=== PATIENT | female | born 1970 | race Two or more races ===

== ENCOUNTER → 2018-02-22 | Day surgery (SDC) | payer OTHER | END | disposition home or self-care (01) | LOC: ADM 02-20 13:45 → CIR.AMB 06:10 | DX: Q62.31 Congenital ureterocele, orthotopic (principal) ==

== ENCOUNTER 2024-08-20 08:36 | Inpatient (IN) | payer OTHER ==
[~2024-08-20] VITALS: Ht 160 cm; Wt 72.6 kg
[2024-08-20] MEDS ORDERED: AVAPRO300 MG PO (08:52)
[2024-08-20] MEDS ORDERED: RINGERS SOLUTION,LACTATED 1,000 ML IV STA (09:14)
[2024-08-20] MEDS ORDERED: KETOROLAC TROMETHAMINE 60 MG VIAL IM STA (09:15)
[2024-08-20 09:28] LABS: HEMATOCRIT 38.5 % (36.0-45.00); MEAN CELL VOLUME 84.6 fL (80.00-100.00); MEAN CORPUSCULAR HEMOGLOBIN 28.7 pg (27.00-32.0); MEAN CORPUSCULAR HGB CONC 33.9 g/dl (32.0-36.0); PLATELET COUNT 325 K/uL (150-450); RED BLOOD COUNT 4.55 M/uL (4.00-6.00); RED CELL DISTRIBUTION WIDTH 14.4 % (11.5-14.5)
[2024-08-20 10:05] LABS: INR 0.97; PARTIAL THROMBOPLASTIN TIME 25.9 SECONDS (22.0-34.0); PROTHROMBIN TIME 10.6 SECONDS (9.0-11.5)
[2024-08-20 10:09] LABS: CALCIUM 8.6 mg/dL (8.5-10.1); CREATININE SERUM 0.61 mg/dL (0.55-1.02); GFR 102.6; POTASSIUM 3.55 mEq/L (3.5-5.1)
[2024-08-20 11:50] LABS: PH,URINE 7.5 (5.0-8.0); URINE APPEARANCE Clear; URINE BILIRRUBIN Negative (NEGATIVE); URINE BLOOD Large; URINE COLOR Yellow; URINE GLUCOSE Negative (NEGATIVE); URINE KETONE Negative (NEGATIVE); URINE LEUKOCYTE Moderate; URINE NITRATE Negative; URINE PROTEIN Negative (NEGATIVE)
[2024-08-20 11:54] LABS: URINE BACTERIA 267.1 uL (0.0-1933); URINE EPITHELIAL CELLS 15.1 uL (0.0-38.8); URINE RBC 418.5 uL (0.0-20.8); URINE WBC 444.5 uL (0.0-23.2)
[2024-08-20 11:57] LABS: URINE CAST 0.45 uL (0.0-1.40)
[2024-08-20] MEDS ORDERED: MEPERIDINE HCL/PF 50 MG/ML VIAL IM STA (15:04)
[2024-08-20] MEDS ORDERED: PROMETHAZINE HCL 50 MG/ML AMPUL IM ONE (15:15)
[2024-08-20] MEDS ORDERED: 0.9 % SODIUM CHLORIDE 1,000 ML IV SCH (22:45)
[2024-08-20] MEDS ORDERED: MORPHINE SULFATE 4 MG/ML CARTRIDGE IV PRN (22:45)
[2024-08-20] MEDS ORDERED: ACETAMINOPHEN 500 MG GEL..CAP PO PRN (22:45)
[2024-08-20] MEDS ORDERED: MORPHINE SULFATE 4 MG/ML CARTRIDGE IV ONE (22:45)
[2024-08-20] MEDS ORDERED: ONDANSETRON HCL 4 MG in 0.9 % SODIUM CHLORIDE 50 ML IV PRN (22:45)
[2024-08-21 02:16] VITALS: BP 130/78
[2024-08-21 03:31] VITALS: BP 120/68; O2SAT 97
[2024-08-21 04:28] LABS: INR 1.15; PARTIAL THROMBOPLASTIN TIME 30.2 SECONDS (22.0-34.0); PROTHROMBIN TIME 12.4 SECONDS (9.0-11.5)
[2024-08-21 04:30] VITALS: BP 122/64; O2SAT 99
[2024-08-21] MEDS ORDERED: MORPHINE SULFATE 4 MG/ML CARTRIDGE IV PRN (07:52)
[2024-08-21 08:35] VITALS: BP 94/63; O2SAT 93
[2024-08-21] MEDS ORDERED: CEFTRIAXONE SODIUM 2,000 MG in 0.9 % SODIUM CHLORIDE 100 ML IV SCH (09:00)
[2024-08-21] MEDS ORDERED: FAMOTIDINE/PF 20 MG in 0.9 % SODIUM CHLORIDE 8 ML IV PUSH SCH (09:00)
[2024-08-21] MEDS ORDERED: IRBESARTAN 300 MG TABLET PO SCH (09:00)
[2024-08-21 09:46] VITALS: BP 130/62
[2024-08-21 10:51] LABS: HEMATOCRIT 33.2 % (36.0-45.00); HEMOGLOBIN 11.1 g/dL (12.0-15.00); MEAN CELL VOLUME 84.4 fL (80.00-100.00); MEAN CORPUSCULAR HEMOGLOBIN 28.3 pg (27.00-32.0); MEAN CORPUSCULAR HGB CONC 33.6 g/dl (32.0-36.0); PLATELET COUNT 282 K/uL (150-450); RED BLOOD COUNT 3.93 M/uL (4.00-6.00); RED CELL DISTRIBUTION WIDTH 14.6 % (11.5-14.5)
[2024-08-21 11:32] LABS: CREATININE SERUM 0.81 mg/dL (0.55-1.02); GFR 73.96; POTASSIUM 3.81 mEq/L (3.5-5.1)
[2024-08-21 15:59] VITALS: BP 136/68; O2SAT 96
[2024-08-22] VITALS: BP 115/62; O2SAT 98
[2024-08-22 08:30] VITALS: BP 138/71; O2SAT 99
[2024-08-22 12:29] LABS: HEMATOCRIT 33.2 % (36.0-45.00); MEAN CELL VOLUME 86.2 fL (80.00-100.00); MEAN CORPUSCULAR HEMOGLOBIN 28.5 pg (27.00-32.0); PLATELET COUNT 283 K/uL (150-450); RED BLOOD COUNT 3.85 M/uL (4.00-6.00); RED CELL DISTRIBUTION WIDTH 14.6 % (11.5-14.5)
[2024-08-22 13:50] LABS: ALBUMIN 2.5 gm/dL (3.4-5.0); BILIRUBIN TOTAL 0.23 mg/dL (0.3-1.2); CALCIUM 8.4 mg/dL (8.5-10.1); CREATININE SERUM 0.6 mg/dL (0.55-1.02); GFR 104.57; GLOBULINA 3.9 G/DL (2.4-3.5); POTASSIUM 3.74 mEq/L (3.5-5.1); TOTAL PROTEIN 6.4 gm/dL (6.4-8.2)
[2024-08-22 17:32] VITALS: BP 124/80; O2SAT 100
[2024-08-23] VITALS: BP 153/79; O2SAT 98
[2024-08-23 08:25] VITALS: BP 134/78; O2SAT 100
[2024-08-23] MEDS ORDERED: ACETAMINOPHEN WITH CODEINE 1 UDTAB TABLET PO PRN (09:45)
[2024-08-23 16:00] VITALS: BP 148/80; O2SAT 98
[2024-08-24 00:43] VITALS: BP 126/66; O2SAT 100
[2024-08-24 08:09] LABS: HEMOGLOBIN 9.8 g/dL (12.0-15.00); MEAN CELL VOLUME 84.5 fL (80.00-100.00); MEAN CORPUSCULAR HEMOGLOBIN 28.6 pg (27.00-32.0); MEAN CORPUSCULAR HGB CONC 33.9 g/dl (32.0-36.0); PLATELET COUNT 274 K/uL (150-450); RED BLOOD COUNT 3.43 M/uL (4.00-6.00); RED CELL DISTRIBUTION WIDTH 14.6 % (11.5-14.5)
[2024-08-24 10:32] VITALS: BP 143/87; O2SAT 98
[2024-08-24 17:24] VITALS: BP 132/75; O2SAT 98
[2024-08-25 00:41] VITALS: BP 135/79; O2SAT 98
[2024-08-25 07:53] VITALS: BP 148/72; O2SAT 100
[2024-08-25] MEDS ORDERED: ACETAMINOPHEN 500 MG GEL..CAP PO PRN (08:15)
[2024-08-25] MEDS ORDERED: CETIRIZINE HCL 5MG/5ML BLIST.PACK PO SCH (09:00)
[2024-08-25] MEDS ORDERED: SODIUM CHLORIDE FOR INHALATION 1 VIAL.NEB IH SCH (09:00)
[2024-08-25] MEDS ORDERED: ACETAMINOPHEN WITH CODEINE 1 UDTAB TABLET PO PRN (15:15)
[2024-08-25 16:00] VITALS: BP 157/90; O2SAT 97
[2024-08-25 17:27] VITALS: BP 169/85
[2024-08-25 21:00] VITALS: BP 158/82; O2SAT 98
[2024-08-25] MEDS ORDERED: FAMOtidine 20 MG TABLET PO SCH (21:00)
[2024-08-25 23:00] VITALS: BP 144/79; O2SAT 98
[2024-08-26 06:30] LABS: HEMATOCRIT 28.2 % (36.0-45.00); HEMOGLOBIN 9.5 g/dL (12.0-15.00); MEAN CELL VOLUME 84.6 fL (80.00-100.00); MEAN CORPUSCULAR HEMOGLOBIN 28.4 pg (27.00-32.0); MEAN CORPUSCULAR HGB CONC 33.6 g/dl (32.0-36.0); PLATELET COUNT 317 K/uL (150-450); RED BLOOD COUNT 3.33 M/uL (4.00-6.00); RED CELL DISTRIBUTION WIDTH 14.4 % (11.5-14.5)
[2024-08-26 07:43] LABS: CALCIUM 7.7 mg/dL (8.5-10.1); CREATININE SERUM 0.44 mg/dL (0.55-1.02); GFR 149.58; POTASSIUM 3.92 mEq/L (3.5-5.1)
[2024-08-26 08:03] VITALS: BP 114/64; O2SAT 97
[2024-08-26 16:35] VITALS: BP 147/88; O2SAT 97
[2024-08-27 00:26] VITALS: BP 122/68; O2SAT 95
[2024-08-27 08:03] VITALS: BP 150/85; O2SAT 95
[2024-08-27] MEDS ORDERED: ACETAMINOPHEN WITH CODEINE 1 UDTAB TABLET PO ONE (08:45)
[2024-08-27 17:04] VITALS: BP 149/90; O2SAT 98
== END 2024-08-27 17:34 | disposition home or self-care (01) | DRG 744 ==
LOC: ER 08:36 → SURG 22:44
PROVIDERS: General Practice; Student in an Organized Health Care Education/Training Program; ADMIT Internal Medicine; ATTEND Internal Medicine
PROC: BU4CZZZ Ultrasonography of Uterus and Ovaries (ICD-10-PCS; 2024-08-20)
PROC: BW21ZZZ Computerized Tomography (CT Scan) of Abdomen and Pelvis (ICD-10-PCS; 2024-08-20)
PROC: BW21YZZ Computerized Tomography (CT Scan) of Abdomen and Pelvis using Other Contrast (ICD-10-PCS; 2024-08-20)
PROC: 0UDB7ZX Extraction of Endometrium, Via Natural or Artificial Opening, Diagnostic (ICD-10-PCS; principal; 2024-08-22)
PROC: BW3GZZZ Magnetic Resonance Imaging (MRI) of Pelvic Region (ICD-10-PCS; 2024-08-22)
PROC: BW3GYZZ Magnetic Resonance Imaging (MRI) of Pelvic Region using Other Contrast (ICD-10-PCS; 2024-08-22)
DX: D27.1 Benign neoplasm of left ovary (principal); A41.9 Sepsis, unspecified organism; N13.30 Unspecified hydronephrosis; N39.0 Urinary tract infection, site not specified; N20.1 Calculus of ureter; D25.1 Intramural leiomyoma of uterus; N83.8 Other noninflammatory disorders of ovary, fallopian tube and broad ligament; N28.89 Other specified disorders of kidney and ureter; N93.9 Abnormal uterine and vaginal bleeding, unspecified
CPT/HCPCS: 72198

== ENCOUNTER 2024-09-24 12:30 | Inpatient (IN) | payer OTHER ==
[~2024-09-24] VITALS: Wt 69.9 kg
[~2024-09-24 12:30] MED LIST: AVAPRO300 MG PO
[2024-09-24 14:37] VITALS: BP 137/90
[2024-09-24 15:18] LABS: RH POSITIVE
[2024-10-02] MEDS ORDERED: METRONIDAZOLE/SODIUM CHLORIDE 500 MG/100 ML PIGGYBACK IV SCH (15:15)
[2024-10-02] MEDS ORDERED: CEFAZOLIN SODIUM 1,000 MG VIAL IV SCH ×2 (15:15→17:00)
[2024-10-02] MEDS ORDERED: HEMOSTATIC MATRIX WITH THROMBIN KIT TOP ONE (15:45)
[2024-10-02] MEDS ORDERED: RINGERS SOLUTION,LACTATED 1,000 ML IV SCH (16:15)
[2024-10-02] MEDS ORDERED: KETOROLAC TROMETHAMINE 30 MG VIAL IV ONE (16:15)
[2024-10-02] MEDS ORDERED: MORPHINE SULFATE 4 MG/ML CARTRIDGE IV PRN (16:15)
[2024-10-02] MEDS ORDERED: ONDANSETRON HCL 2 MG/ML VIAL IV PRN (16:15)
[2024-10-02] MEDS ORDERED: MORPHINE SULFATE 4 MG/ML VIAL IV ONE ×3 (16:50→18:50)
[2024-10-02] MEDS ORDERED: SIMETHICONE 125 MG CAPSULE PO SCH (17:00)
[2024-10-02] MEDS ORDERED: GABAPENTIN 300 MG CAPSULE PO SCH (17:00)
[2024-10-02 17:45] LABS: HEMATOCRIT 35.9 % (36.0-45.00); HEMOGLOBIN 11.9 g/dL (12.0-15.00); MEAN CELL VOLUME 82.6 fL (80.00-100.00); MEAN CORPUSCULAR HEMOGLOBIN 27.4 pg (27.00-32.0); MEAN CORPUSCULAR HGB CONC 33.1 g/dl (32.0-36.0); PLATELET COUNT 232 K/uL (150-450); RED BLOOD COUNT 4.35 M/uL (4.00-6.00); RED CELL DISTRIBUTION WIDTH 14.6 % (11.5-14.5)
[2024-10-02] MEDS ORDERED: ACETAMINOPHEN 500 MG GEL..CAP PO SCH (18:00)
[2024-10-02] MEDS ORDERED: KETOROLAC TROMETHAMINE 30 MG VIAL IM SCH (18:00)
[2024-10-02 18:17] LABS: ALBUMIN 3.4 gm/dL (3.4-5.0); CALCIUM 8.5 mg/dL (8.5-10.1); CREATININE SERUM 0.64 mg/dL (0.55-1.02); GFR 97.07; PHOSPHOROUS 3.2 mg/dL (2.5-4.9); POTASSIUM 3.18 mEq/L (3.5-5.1)
[2024-10-02] MEDS ORDERED: FAMOTIDINE/PF 20 MG/2 ML VIAL IV PUSH SCH (21:00)
[2024-10-02 22:20] VITALS: BP 148/71; O2SAT 97
[2024-10-03] VITALS: BP 146/76; O2SAT 95
[2024-10-03 06:33] LABS: HEMATOCRIT 33.7 % (36.0-45.00); HEMOGLOBIN 11.5 g/dL (12.0-15.00); MEAN CELL VOLUME 82.3 fL (80.00-100.00); MEAN CORPUSCULAR HEMOGLOBIN 28.2 pg (27.00-32.0); MEAN CORPUSCULAR HGB CONC 34.2 g/dl (32.0-36.0); PLATELET COUNT 205 K/uL (150-450); RED CELL DISTRIBUTION WIDTH 14.4 % (11.5-14.5)
[2024-10-03 07:23] LABS: ALBUMIN 2.8 gm/dL (3.4-5.0); CALCIUM 8.1 mg/dL (8.5-10.1); CREATININE SERUM 0.59 mg/dL (0.55-1.02); GFR 106.62; PHOSPHOROUS 3.9 mg/dL (2.5-4.9); POTASSIUM 3.64 mEq/L (3.5-5.1)
[2024-10-03 08:00] VITALS: BP 115/63; O2SAT 97
[2024-10-03] MEDS ORDERED: POTASSIUM CHLORIDE 10 MEQ CAPSULE PO NR (09:00)
[2024-10-03] MEDS ORDERED: METOCLOPRAMIDE HCL 5 MG/ML VIAL IV SCH (09:00)
[2024-10-03] MEDS ORDERED: KETOROLAC TROMETHAMINE 30 MG VIAL IV SCH (09:00)
[2024-10-03] MEDS ORDERED: ENOXAPARIN SODIUM 40 MG/0.4 ML SYRINGE SUBCUTANEO SCH (09:00)
[2024-10-03 16:40] VITALS: BP 133/71; O2SAT 96
[2024-10-03] MEDS ORDERED: IBUprofen 800 MG TABLET PO SCH (17:00)
[2024-10-03] MEDS ORDERED: TRAZODONE HCL 50 MG TABLET PO PRN (17:00)
[2024-10-04 00:44] VITALS: BP 140/76; O2SAT 100
[2024-10-04] MEDS ORDERED: IRBESARTAN 300 MG TABLET PO SCH (09:00)
== END 2024-10-04 14:48 | disposition home or self-care (01) | DRG 743 ==
LOC: O/R 10-02 07:00 → SURH 10-02 12:30
PROVIDERS: ADMIT Obstetrics & Gynecology Gynecologic Oncology; ATTEND Obstetrics & Gynecology Gynecologic Oncology
PROC: 0UT70ZZ Resection of Bilateral Fallopian Tubes, Open Approach (ICD-10-PCS; 2024-10-02)
PROC: 0UT20ZZ Resection of Bilateral Ovaries, Open Approach (ICD-10-PCS; 2024-10-02)
PROC: 07BC0ZZ Excision of Pelvis Lymphatic, Open Approach (ICD-10-PCS; 2024-10-02)
PROC: 0DBU0ZZ Excision of Omentum, Open Approach (ICD-10-PCS; 2024-10-02)
PROC: 3E1M38Z Irrigation of Peritoneal Cavity using Irrigating Substance, Percutaneous Approach (ICD-10-PCS; 2024-10-02)
PROC: 0UT90ZZ Resection of Uterus, Open Approach (ICD-10-PCS; principal; 2024-10-02 13:00)
DX: D25.1 Intramural leiomyoma of uterus (principal); D25.2 Subserosal leiomyoma of uterus; D27.1 Benign neoplasm of left ovary; D36.0 Benign neoplasm of lymph nodes; N80.03 Adenomyosis of the uterus; N72 Inflammatory disease of cervix uteri; Z20.822 Contact with and (suspected) exposure to COVID-19